=== PATIENT | male | born 1975 | race Caucasian/White ===

== ENCOUNTER 2020-08-22 06:32 | Emergency (ER) | payer SELFPAY ==
[2020-08-22 06:34] VITALS: BP 159/104; PULSE 58; RESP 16; TEMP 36.7; O2SAT 99; BMI 27.4
--- NOTE | 2020-08-22 06:43 | RAD_ITS ---
HISTORY: chest pain x 2 days ADDITIONAL HISTORY: None provided. EXAMINATION/TECHNIQUE: XR Chest 1 View AP/PA Number of images including paperwork: 2 COMPARISON: 02/11/2015 FINDINGS: LUNGS AND PLEURA: No consolidation, mass or pleural effusion. CARDIAC SILHOUETTE: Unremarkable. MEDIASTINUM AND JAREK: Unremarkable. UPPER ABDOMEN: Unremarkable. SKELETON AND SOFT TISSUES: No acute skeletal findings. OTHER DEVICES AND HARDWARE: None. RAD/Chest 1 View (Portable) IMPRESSION: No acute cardiopulmonary abnormality. at 0714 Reported and signed by: Shahnaz Pineda MD Electronically Signed: Shahnaz Pineda MD at 7:14 EST Tel , Service support ,
--- NOTE | 2020-08-22 06:43 | EKG12_ITS ---
Test Reason : CP Blood Pressure : / mmHG Vent. Rate : 047 BPM Atrial Rate : 047 BPM P-R Int : 170 ms QRS Dur : 102 ms QT Int : 424 ms P-R-T Axes : 054 067 043 degrees QTc Int : 375 ms Sinus bradycardia Otherwise normal ECG No previous ECGs available Confirmed by GALINDO SPARROW, NORMA ([id number]), sports editor NITO GREGORY ([id number]) on 09/04/2020 2:13:22 PM Referred By: PHIL Confirmed By:THEA MEDLEY MD
[2020-08-22 06:44] VITALS: O2SAT 96
[2020-08-22 07:01] LABS: Absolute Lymphocyte Count 1.81 X10^3/uL (0.83-4.51); Basophil# 0.06 X10^3/uL; Basophil% 0.8 % (0-1); Eosinophil# 0.29 X10^3/uL; Eosinophils% 3.7 % (0-5); Hematocrit 45.4 % (40-54); Lymphocyte # 1.81 X10^3/ul (4.0); Lymphocyte % 22.8 % (19-41); Mean Corpuscular Hgb 30.3 pg (27.0-32.0); Mean Corpuscular Volume 91.7 fL (80-94); Mean Platelet Vol. 9.7 fl (6.2-12.0); Monocyte# 0.76 X10^3/uL; Monocyte% 9.6 % (0-10); NRBC Flagged by Analyzer 0 % (0-5); Neutrophil # 4.97 X10^3/uL (2.7-7.7); Neutrophil % 62.6 % (47-70); Platelet Count 313 K/mm3 (150-450); RBC Distribution Width CV 12.6 % (11.6-14.6); Red Blood Count 4.95 M/mm3 (4.6-6.2); White Blood Count 7.9 K/mm3 (4.4-11.0)
--- NOTE | 2020-08-22 07:23 | ED.DCSUM_ITS ---
- ER Visit Summary Date of Service: 08/22/20 Chief Complaint: Right chest pain History of Present Illness: The patient is a 45 M who presents with right-sided chest pain that began last night. Patient states it has gradually gotten worse throughout the night. Patient describes it as a pulling sensation. Patient states it is over the right side of his chest. Patient states nothing makes it better or worse. Patient admits to an episode of nausea and vomiting. Patient denies any palpitations. Patient denies any fevers or chills. Patient states the pain does radiate into his back. Patient does admit to a cough but relates this to smoking. Smoking is the patient's only cardiac risk factor. Patient denies any PE risk factors. Physical Examination: Vital signs are stable. Patient is afebrile. Patient is in no acute distress. Oral mucosa is pink and moist. Neck is supple. Trachea is midline. There is no JVD noted. Heart was regular rate and rhythm. Lungs are clear and equal bilaterally. Abdomen is soft. Bowel sounds are normal. There is mild tenderness along the right costal margin and right upper quadrant. There is no rebound or guarding noted. Hugo sign is negative. Skin is warm dry. Cranial nerves II through XII are intact. There are no focal motor or sensory deficits noted. Extremities are intact. There is no calf tenderness or edema. Test Results: EKG showed sinus bradycardia with a rate of 47. There are no acut e ST or T wave changes. There are no prior EKGs available for comparison. Portable 1 view chest x-ray was obtained. On my interpretation, lung peters are clear. There is normal cardiac silhouette. Bony thorax is normal. There is no acute process noted. Radiologist also interpreted the x-ray and agrees. CBC and comprehensive metabolic profile was within normal limits. Troponin was normal. Lipase was normal. Emergency Department Course and Treatment: Patient was given a dose of ibuprofen here. Patient was advised of his findings. Patient has a HEART score of 1. Patient was advised that this is low risk for acute cardiac event. Patient was instructed to follow-up with his primary care physician in 5 to 7 days for reevaluation. Patient was advised that this could be gallbladder related as well. Patient was instructed to eat a bland diet. Patient was instructed to return if worse in any way. Patient understood and was agreeable with the plan. All questions were answered. Disposition: Discharge home Impression: 1. Right chest pain of uncertain etiology This note was generated with [employer] dictation software. It may contain incorrect words, spelling, and punctuation that were not noted in review of the chart prior to signing ED Disposition - Plan for ED Patient: Disposition: Home or Assisted Living Diagnosis: Chest pain of uncertain etiology Instructions: ED Chest Pain Atypical Unkn Cause Referrals: Care Physician,No Primary [NON-STAFF] - 5-7 Days Adalberto Christensen MD [NON-STAFF] - 5-7 Days
[2020-08-22 07:35] LABS: AST(SGOT) 24 U/L (15-37); Alanine Aminotransfer ALT/SGPT 29 U/L (16-61); Albumin, Serum 3.9 g/dL (3.2-5.0); Alkaline Phosphatase 86 U/L (45-117); Bilirubin, Direct 0.07 mg/dL (0.00-0.30); Globulin 3.5 g/dL (2.2-4.2); Protein, Total 7.4 g/dL (6.4-8.2)
[2020-08-22 07:38] LABS: Anion Gap 3 (5-15); BUN 15 mg/dL (7-18); BUN/Creat Ratio 14.7 RATIO (10-20); Calcium,Total 9.2 mg/dL (8.5-10.1); Chloride 110 mmol/L (98-107); Creatinine, Serum 1.02 mg/dL (0.70-1.30); EST Glomerular Filtration Rate 85 mL/min (>60); Est Glom Filt Rate - Afr Amer 102 mL/min (>60); Estimated Creatinine Clearance 87.31 ml/min; Glucose 98 mg/dL (74-106); Lipase 113 U/L (73-393); Potassium 4.1 mmol/L (3.5-5.1); Sodium Level 141 mmol/L (136-145)
[2020-08-22] MEDS: Ibuprofen 400 MG Tablet 800 MG PO (08:30)
[2020-08-22 09:22] VITALS: BP 145/93; PULSE 48; RESP 17; O2SAT 99
== END 2020-08-22 09:23 | disposition home or self-care (01) ==
PROVIDERS: Emergency Provider Emergency Medicine
DX: R07.89 Other chest pain (principal); R05 Cough; R11.2 Nausea with vomiting, unspecified; F17.200 Nicotine dependence, unspecified, uncomplicated
CPT/HCPCS: 71045; 80048; 80076; 83690; 84484; 85025; 93005; 99284

== ENCOUNTER 2023-08-20 08:17 | Emergency (ER) | payer MEDICAID, SELFPAY ==
[2023-08-20 08:18] VITALS: BP 154/111; PULSE 76; RESP 18; TEMP 36.7; O2SAT 100; BMI 22.3
--- NOTE | 2023-08-20 08:56 | EX.ED.DYSGE1 ---
HPI History of Present Illness Chief Complaint: Rash Narrative Narrative: 48-year-old male presenting with facial rash. On the left side of the face. He is describes it as itching and painful. Initially the lesions showed up as vesicles and ruptured. He states he had a clear fluid in these. He is now scabbing over. He notes that they are not left side of face and the left occiput. Is any trauma. Believes he had chickenpox as a kid. States has been on a lot of stress recently. He has been using cortisone cream on this without relief. PFSH PFSH Home Medications acyclovir 800 mg tablet 800 mg PO 5X/DAY #35 TABLETS 08/20/23 [Rx Last Taken Unknown] prednisone 10 mg tablet 10 mg PO DAILY #48 TABLETS 08/20/23 [Rx Last Taken Unknown] Allergy/AdvReac Type Severity Reaction Status Date / Time venom-honey bee AdvReac Hives Verified 08/22/20 06:33 [bee venom (honey bee)] Social History Smoking Status: Current every day smoker ROS ROS ED Constitutional Constitutional ED: Denies chills, fever(s) or sweats Eyes Eyes: Denies blurry vision or change in vision ENT ENT ED: Denies ear pain or sore throat Cardiovascular Cardiovascular: Denies chest pain, palpitations or racing heartbeat Respiratory/Chest Respiratory/Chest: Denies cough, dyspnea or sputum Gastrointestinal Gastrointestinal: Denies abdominal pain, constipation, diarrhea, nausea or vomiting Genitourinary Genitourinary ED: Denies dysuria, hematuria or urinary frequency Musculoskeletal Musculoskeletal: Denies arthralgias, myalgias or neck pain Integumentary Reports rash; Denies abscess or Abrasions Neurologic Neurologic: Denies headache(s), paresthesias or weakness Psychiatric Psychiatric: Denies anxiety, depression, suicidal ideation or suicidal thoughts Endocrine Endocrinology: Denies polydipsia or polyuria EXAM Physical Exam Const Vital Signs: 08/20/23 08:18 Temperature 98.0 F Temperature Source Temporal Pulse Rate 76 Respiratory Rate 18 Blood Pressure 154/111 H Blood Pressure Mean 125 Pulse Ox 100 Oxygen Delivery Method Room Air Positive well nourished General Appearance ED: NAD HEENT Reports moist mucous membranes Eyes PERRL and EOMs intact bilaterally Neck no lymphadenopathy Resp normal respiratory effort Cardio regular rate and regular rhythm Neuro oriented x3 and CN's II-XII intact bilaterally Sensorium / Orientation: alert Motor Exam: strength 5/5 throughout Psych mental status grossly normal Skin Skin Narrative: There is however macular rash on the lower mandible on the left side of the face with rash extending into the occiput including upper surface of the ear which more vesicular posteriorly. No weeping. No surrounding induration. Is moderately tender. MDM MDM MDM Narrative Medical decision making narrative: Suspect the patient has shingles. This appears to be a dermatomal distribution. Patient will be started on acyclovir and prednisone. Return precautions were discussed. Impression: 1. Shingles Discharge Plan Triage Chief Complaint: Rash ED Provider: Derrek Duff Dx/Rx/DC Orders Instructions: ED Shingles (Herpes Zoster) Prescriptions: New acyclovir 800 mg tablet 800 mg PO 5X/DAY Qty: 35 0RF prednisone 10 mg tablet 10 mg PO DAILY Qty: 48 0RF Rx Instructions: 6 po qd x 3 days, 4 po qd x 3 days, 2 po qd x 3 days, 1 po qd x 3 days Primary Care Provider: Care Physician,No Primary Referrals: [facility] [Provider Group] - 3-5 Days if not improving Care Physician,No Primary [Primary Care Provider] - Disposition Disposition: Home, Self Care
[2023-08-20] MEDS: predniSONE 20 MG Tablet 60 MG PO (09:07)
[2023-08-20] MEDS: Acyclovir 800 MG Tablet PO (09:07)
== END 2023-08-20 09:31 | disposition home or self-care (01) ==
PROVIDERS: Emergency Provider Student in an Organized Health Care Education/Training Program; Visit Provider Student in an Organized Health Care Education/Training Program
DX: B02.9 Zoster without complications (principal); F17.200 Nicotine dependence, unspecified, uncomplicated
CPT/HCPCS: 99282